=== PATIENT | male | born 1985 | race Caucasian/White ===

== ENCOUNTER 2021-07-17 19:04 | Emergency (ER) | payer SELFPAY ==
[~2021-07-17] VITALS: Ht 160 cm; Wt 83.9 kg
[2021-07-17 19:10] VITALS: BP 154/70
[2021-07-17 19:51] VITALS: BP 154/70
--- NOTE | 2021-07-17 19:53 | NUR ---
PATIENT BIB [employer]. PATIENT EXAMINED BY DR. ARRIOLA. PATIENT MEDICALLY CLEARED AND RELEASED IN CUSTODY IN STABLE CONDITION. ORIGINAL PRE-BOOK FORM GIVEN TO OFFICER JAMES.
== END 2021-07-17 19:53 ==
LOC: MED 19:04
DX: Z02.89 Encounter for other administrative examinations (principal)
CPT/HCPCS: 99283